=== PATIENT | female | born 1995 | race Caucasian/White ===

== ENCOUNTER 2017-10-15 02:35 | Emergency (ER) | payer OTHER ==
[~2017-10-15] VITALS: Ht 154.9 cm; Wt 50.5 kg
[2017-10-15 02:40] VITALS: BP 137/87; TEMP 98
[2017-10-15] MEDS ORDERED: CEPHALEXIN500 M1 PO (04:07)
[2017-10-15 04:27] VITALS: PULSE 76
== END 2017-10-15 04:25 | disposition home or self-care (01) ==
LOC: COL.ER 02:35
DX: L02.11 Cutaneous abscess of neck (principal)

== ENCOUNTER 2019-05-15 00:33 | Emergency (ER) | payer OTHER ==
[~2019-05-15] VITALS: Ht 154.9 cm; Wt 54.5 kg
[~2019-05-15 00:33] MED LIST: CEPHALEXIN500 M1 PO
[2019-05-15 00:35] VITALS: TEMP 100.2
[2019-05-15] MEDS ORDERED: AMOXICILLIN 8751 TAB PO (02:31)
[2019-05-15 02:52] VITALS: PULSE 72
== END 2019-05-15 02:45 | disposition home or self-care (01) ==
LOC: COL.ER 00:33
DX: S01.551A Open bite of lip, initial encounter (principal); Z23 Encounter for immunization; W54.0XXA Bitten by dog, initial encounter